=== PATIENT | male | born 1955 | race Hispanic/Latino ===

== ENCOUNTER 2017-04-14 00:12 | Emergency (ER) | payer BC ==
--- NOTE | 2017-04-14 00:22 | ED PDOC ---
Arrival/HPI - General Time Seen by Provider: 04/14/17 00:15 Historian: Patient - History of Present Illness Narrative History of Present Illness (Text): 04/14/17 00:25 62 y/o male, last tetanus under 1 year ago, no pmh, nkda, c/o lt. forearm laceration x 2 hours. pt. stated that he punched the glass about 2 hours ago, broke the glass and sustained the laceration on the left forearm, no numbness or tingling, no difficulty moving the lt. upper extremity, no night sweat, no rash, no palpitation, no other medical or psychological complaints. Past Medical History - Provider Review Nursing Documentation Reviewed: Yes - Travel History Have you recently traveled outside [place] w/in the past 3 mons?: Yes Family/Social History - Physician Review Nursing Documentation Reviewed: Yes Family/Social History: Unknown Family HX Allergies/Home Meds Allergies/Adverse Reactions: Allergies No Known Allergies Allergy (Verified 04/14/17 00:24) Home Medications: Home Meds Medication Instructions Recorded Confirmed clonazePAM [Klonopin] 1 mg PO DAILY 04/14/17 04/14/17 Review of Systems - Review of Systems Constitutional: absent: Fatigue, Fevers Eyes: absent: Vision Changes ENT: absent: Hearing Changes Respiratory: absent: SOB, Cough Cardiovascular: absent: Chest Pain Gastrointestinal: absent: Abdominal Pain, Nausea, Vomiting Skin: Laceration. absent: Rash, Pruritis, Skin Lesions, Abscess, Ulcer Physical Exam Vital Signs Temp Pulse Resp BP Pulse Ox 04/14/17 00:28 97.8 F 72 16 147/68 99 - Systems Exam Head: Present: Atraumatic, Normocephalic Pupils: Present: PERRL Extroacular Muscles: Present: EOMI Conjunctiva: Present: Normal Mouth: Present: Moist Mucous Membranes Neck: Present: Normal Range of Motion Respiratory/Chest: Present: Clear to Auscultation, Good Air Exchange. No: Respiratory Distress, Accessory Muscle Use Cardiovascular: Present: Regular Rate and Rhythm, Normal S1, S2. No: Murmurs Abdomen: Present: Normal Bowel Sounds. No: Tenderness, Distention, Peritoneal Signs Upper Extremity: Present: Normal Inspection, Other (Lt. forearm: visible approx. 3cm c-shaped intermediate depth laceration with no visible brokened glass, FROM without limitation, sensation intact, motor 5/5, lt. hand 5 digits with full range of movement, neurovascular intact, no tendon/ligament injury involved. ). No: Cyanosis, Edema Lower Extremity: Present: Normal Inspection. No: Edema Neurological: Present: GCS=15, CN II-XII Intact, Speech Normal Skin: Present: Warm, Dry, Normal Color. No: Rashes Psychiatric: Present: Alert, Oriented x 3, Normal Insight, Normal Concentration Medical Decision Making ED Course and Treatment: 04/14/17 00:29 -keflex -xray 04/14/17 01:16 -xray show no visible foreign bodies/fracture/dislocation -sensation intact, motor 5/5, wound irrigate with normal saline 1000cc, clean with betadine, 1% lidocaine injected approx. 1cc on the laceration site, 4-0 nylon made 10 sutures, hemostasis obtained, bacitracin and gauze dressing, sensation intact, motor 5/5. -Discharge home with keflex, motrin, bacitracin oinment, keep the dressing dry and clean for 2 days, wash the wound twice daily with soap and water, sutures nee to be removed by day 9-10, return to the ER for any new or worsening signs or symptoms. - RAD Interpretation Radiology Orders: 04/14/17 00:26 FOREARM LEFT [RAD] Stat no fracture/dislocation/foreign bodies. Vice President Payer: Radiologist - Medication Orders Current Medication Orders: Discontinued Medications Cephalexin Monohydrate (Keflex) 500 mg PO STAT STA PRN Reason: Protocol Stop: 04/14/17 00:27 Last Admin: 04/14/17 00:49 Dose: 500 mg - PA / CABLE REPAIRER / Resident Statement /DO has reviewed & agrees with the documentation as recorded. Disposition/Present on Arrival - Present on Arrival Any Indicators Present on Arrival: No History of DVT/PE: No History of Uncontrolled Diabetes: No Urinary Catheter: No History of Decub. Ulcer: No - Disposition Have Diagnosis and Disposition been Completed?: Yes Diagnosis: Forearm laceration Disposition: HOME/ ROUTINE Disposition Time: 00:40 Patient Plan: Discharge Condition: IMPROVED Additional Instructions: -Discharge home with keflex, motrin, bacitracin oinment, keep the dressing dry and clean for 2 days, wash the wound twice daily with soap and water, sutures nee to be removed by day 9-10, return to the ER for any new or worsening signs or symptoms. Prescriptions: Bacitracin Ointment [Bacitracin] 1 appful TOP BID #15 g Cephalexin [cephalexin] 500 mg PO QID #28 cap Ibuprofen [Motrin] 600 mg PO QID PRN #24 tab PRN Reason: Other Referrals: Jeff Briggs MD [Primary Care Provider] - Follow up with primary Tony Luis MD [Staff Provider] - Follow up with primary Forms: WORK NOTE
[2017-04-14 00:23] VITALS: BMI 25.1
[2017-04-14 00:32] VITALS: BP 147/68; PULSE 72; RESP 16; TEMP 97.8; O2SAT 99
--- NOTE | 2017-04-14 12:23 | RAD ---
No radiopaque foreign PROCEDURE: Left forearm 04/14/2017 HISTORY: laceration with glasses COMPARISON: None available. TECHNIQUE: Frontal and lateral views obtained. FINDINGS: BONES: No fracture or destructive lesion. . Tiny red cortical regularity lateral epicondyle left humerus may represent enthesophyte formation. JOINT SPACES: Unremarkable. . OTHER FINDINGS: There are no radiopaque foreign bodies identified. There does appear to be disruption -laceration with small amount of subcutaneous air within the dorsal soft tissues left forearm at the level of the distal 1/2 -- 1/3 of the forearm IMPRESSION: No evidence of acute displaced fracture nor dislocation. There are no radiopaque foreign bodies. Dorsal soft tissue laceration as described.
== END 2017-04-14 01:26 | disposition home or self-care (01) ==
LOC: ED 00:12
DX: S51.812A Laceration without foreign body of left forearm, initial encounter (principal); W25.XXXA Contact with sharp glass, initial encounter